=== PATIENT | female | born 1985 ===

== ENCOUNTER 2018-10-05 18:13 | Emergency (ER) | payer OTHER ==
[2018-10-05 18:28] VITALS: BP 101/66; PULSE 58; RESP 18; TEMP 98.2; O2SAT 99
--- NOTE | 2018-10-05 18:53 | ED PDOC ---
Upper Extremity Pain/Injury Time Seen by Provider: 10/05/18 18:30 Chief Complaint (Nursing): Upper Extremity Problem/Injury Chief Complaint (Provider): Shoulder injury History Per: Patient Additional Complaint(s): Patient is a 33 yo female,no PMH, presents to ED for evaluation of left shoulder pain. Pt notes pain started after lifting heavy boxes at work. patient felt arm slip. Patient gaurding shoulder. No analgesics taken for pain thus far Past Medical History Reviewed: Nursing Documentation, Vital Signs Vital Signs: Last Vital Signs Temp 98.2 F 10/05/18 18:25 Pulse 58 L 10/05/18 18:25 Resp 18 10/05/18 18:25 BP 101/66 10/05/18 18:25 Pulse Ox 99 10/05/18 18:25 - Medical History PMH: No Chronic Diseases - Surgical History Surgical History: No Surg Hx - Family History Family History: States: Unknown Family Hx - Living Arrangements Living Arrangements: With Friends/Others - Home Medications Home Medications: Ambulatory Orders Medication Instructions Recorded Ibuprofen [Motrin] 600 mg PO Q6 #20 tab 10/05/18 - Allergies Allergies/Adverse Reactions: Allergies Allergy/AdvReac Type Severity Reaction Status Date / Time No Known Allergies Allergy Verified 10/05/18 18:51 Review of Systems ROS Statement: Except As Marked, All Systems Reviewed And Found Negative Musculoskeletal: Positive for: Shoulder Pain Physical Exam - Reviewed Nursing Documentation Reviewed: Yes Vital Signs Reviewed: Yes - Physical Exam Appears: Positive for: Well, Non-toxic, No Acute Distress Head Exam: Positive for: ATRAUMATIC, NORMAL INSPECTION, NORMOCEPHALIC Skin: Positive for: Normal Color, Warm, DRY Eye Exam: Positive for: EOMI, Normal appearance, PERRL ENT: Positive for: Normal ENT Inspection Neck: Positive for: Normal, Painless ROM Cardiovascular/Chest: Positive for: Regular Rate, Rhythm Respiratory: Positive for: CNT, Normal Breath Sounds Gastrointestinal/Abdominal: Positive for: Normal Exam, Soft Back: Positive for: Normal Inspection Extremity: Positive for: Tenderness (over lateral and anterior shoulder), Other (Full iternal rotation, and adduction, limited abduction due to pain). Negative for: Deformity, Swelling Neurologic/Psych: Positive for: Alert, Oriented - ECG O2 Sat by Pulse Oximetry: 99 Medical Decision Making Medical Decision Making: Pt initially declined analgesics, then requested Motrin for pain XR: NAd, as read by ANDREEA QUINONES therapy advised Disposition - Clinical Impression Clinical Impression: Shoulder pain - Patient ED Disposition Is Patient to be Admitted: No - Disposition Referrals: Kyle Mas MD [Staff Provider] - Disposition: Routine/Home Disposition Time: 20:34 Condition: STABLE Prescriptions: Ibuprofen [Motrin] 600 mg PO Q6 #20 tab Instructions: Shoulder Pain (DC) Forms: [employer] (Congolese)
[2018-10-05] MEDS ORDERED: Oxycodone/Acetaminophen 5/325 mg Tab PO STA (20:00)
--- NOTE | 2018-10-06 17:50 | RAD ---
Date of service: 10/05/2018 PROCEDURE: Radiographs of the Left Shoulder HISTORY: pain, lifted heavy COMPARISON: No prior. FINDINGS: BONES: No acute fracture or destructive bony lesion identified. JOINTS: Normal. Glenohumeral and acromioclavicular joints preserved. No osteoarthritis. SOFT TISSUES: Normal. OTHER FINDINGS: None. IMPRESSION: Normal radiographs of the left shoulder.
== END 2018-10-05 20:52 | disposition home or self-care (01) ==
LOC: H.ER 18:13
DX: M25.512 Pain in left shoulder (principal); X50.0XXA Overexertion from strenuous movement or load, initial encounter; Y99.0 Civilian activity done for income or pay